=== PATIENT | female | born 1975 | race Caucasian/White ===

== ENCOUNTER 2019-06-08 05:41 | Day surgery (SDC) | payer MEDICARE, MEDICAID ==
[~2019-06-08] VITALS: Ht 162.6 cm; Wt 83.9 kg
[2019-06-08] MEDS ORDERED: LACTATED RINGERS 1,000 ML IV SCH (06:45)
[2019-06-08 07:10] LABS: BASOPHILS % 1.1 % (0.0-2.0); EOSINOPHILS % 4.3 % (0.0-5.0); HEMATOCRIT. 29.7 % (36.0-48.0); HEMOGLOBIN. 9.9 g/dL (12.0-16.0); MEAN CORPUSCULAR HEMOGLOBIN 27.2 pg (28.0-32.0); MEAN CORPUSCULAR VOLUME 81.9 fL (81.0-99.0); MEAN PLATELET VOLUME 8.2 fl (7.4-10.4); MONOCYTES % 6.2 % (2.0-8.0); NEUTROPHILS % 54.4 % (40.0-76.0); PLATELET 398 x1000/uL (130-400); RED BLOOD CELL COUNT 3.62 mill/uL (4.2-5.4); RED CELL DISTRIBUTION WIDTH 22.8 % (11.6-14.6)
[2019-06-08 07:11] LABS: CLARITY URINE CLOUDY (CLEAR); COLOR URINE YELLOW (YELLOW); KETONES URINE TRACE (NEGATIVE); LEUKOCYTE ESTERASE URINE NEGATIVE (NEGATIVE); NITRITE URINE NEGATIVE (NEGATIVE); OCCULT BLOOD URINE NEGATIVE (NEGATIVE); PROTEIN URINE 3+ (NEGATIVE); SPECIFIC GRAVITY URINE 1.025 (1.005-1.030); UROBILINOGEN URINE 0.2 E.U./dL (0.2-1.0)
[2019-06-08 07:14] LABS: UCG SCREEN NEGATIVE
[2019-06-08 07:15] LABS: CHLORIDE 109 mEq/L (98-107)
[2019-06-08 07:17] LABS: PARTIAL THROMBOPLASTIN TIME 26.1 sec (23.4-31.0)
[2019-06-08] MEDS ORDERED: FERR325T6 PO (07:19)
[2019-06-08] MEDS ORDERED: MULT-1116 PO (07:19)
[2019-06-08] MEDS ORDERED: MAGN500C4 PO (07:19)
[2019-06-08] MEDS ORDERED: INSU100I28 SQ (07:19)
[2019-06-08] MEDS ORDERED: SITA1TAB6 PO (07:19)
[2019-06-08] MEDS ORDERED: GEMF600T PO (07:19)
[2019-06-08] MEDS ORDERED: APIX5TAB PO (07:19)
[2019-06-08] MEDS ORDERED: MIDAZOLAM HCL 2 MG/2 ML VIAL ONE (07:35)
[2019-06-08] MEDS ORDERED: FENTANYL CITRATE/PF 50MCG/ML 2ML VIAL ONE ×2 (07:35→10:24)
[2019-06-08] MEDS ORDERED: PROPOFOL 200MG/20ML VIAL IV ONE (07:35)
[2019-06-08] MEDS ORDERED: LIDOCAINE HCL 1% 20ML VIAL (Pyxis) INJ ONE (07:36)
[2019-06-08] MEDS ORDERED: CEFAZOLIN SODIUM 1000MG/VIAL ONE (07:38)
[2019-06-08] MEDS ORDERED: SODIUM CHLORIDE 0.9% 10ML VIAL ONE (07:38)
[2019-06-08] MEDS ORDERED: NEOSTIGMINE METHYLSULFATE 1MG/ML 10 ML VIAL ONE (07:41)
[2019-06-08] MEDS ORDERED: ROCURONIUM BROMIDE 10MG/ML VIAL 5ML IV ONE (07:41)
[2019-06-08] MEDS ORDERED: GLYCOPYRROLATE 0.2 MG/ML 2ML VIAL ONE (07:41)
[2019-06-08 07:42] LABS: PLATELET ESTIMATE NORMAL
[2019-06-08] MEDS ORDERED: ONDANSETRON HCL 4MG/2ML INJ ONE ×2 (07:43→10:22)
[2019-06-08] MEDS ORDERED: METOCLOPRAMIDE HCL 10MG/2ML VIAL ONE (07:43)
[2019-06-08] MEDS ORDERED: EPHEDRINE SULFATE 50MG/ML VIAL ONE (08:10)
[2019-06-08] MEDS ORDERED: DIPHENHYDRAMINE 50MG/ML VIAL IV PRN (09:00)
[2019-06-08] MEDS ORDERED: HYDROMORPHONE HCL/PF 2MG/ML CPJ IV PRN (09:00)
[2019-06-08] MEDS ORDERED: DIPHENHYDRAMINE 50MG/ML VIAL IV NR (10:15)
[2019-06-08] MEDS ORDERED: FENTANYL CITRATE/PF 50MCG/ML 2ML VIAL IV PRN (10:15)
[2019-06-08] MEDS ORDERED: ONDANSETRON HCL 4MG/2ML INJ IV NR (10:15)
[2019-06-08] MEDS ORDERED: DIPHENHYDRAMINE 50MG/ML VIAL ONE (10:23)
[2019-06-08 11:08] VITALS: BP 155/83
== END 2019-06-08 12:10 | disposition home or self-care (01) ==
LOC: OR 05:41
PROVIDERS: ATTEND Obstetrics & Gynecology Obstetrics
DX: N93.9 Abnormal uterine and vaginal bleeding, unspecified (principal); N84.1 Polyp of cervix uteri; E11.9 Type 2 diabetes mellitus without complications; N92.1 Excessive and frequent menstruation with irregular cycle; Z98.890 Other specified postprocedural states; Z98.891 History of uterine scar from previous surgery; Z98.51 Tubal ligation status; Z79.899 Other long term (current) drug therapy; Z79.4 Long term (current) use of insulin
CPT/HCPCS: 36415; 58558; 80048; 81003; 81025; 82962; 85025; 85610; 85730; 88305; J0690; J1200; J2250; J2405; J2704; J2710; J2765; J3010; J3490

== ENCOUNTER → 2021-11-13 | Day surgery (SDC) | payer MEDICARE, MEDICAID ==
[~2021-11-13] VITALS: Ht 162.6 cm; Wt 85.3 kg
[~2021-11-13] MED LIST: APIX5TAB PO; ATOR80TA MT; CEFAZOLIN SODIUM 1000MG/VIAL ONE; DIPHENHYDRAMINE 50MG/ML VIAL ONE; DULA0.75 SQ; FENTANYL CITRATE/PF 50MCG/ML 2ML VIAL ONE; FERR325T6 PO; GEMF600T PO; INSU100I28 SQ; LIDOCAINE HCL/PF 1% 10 MG/ML 5ML VIAL ONE; MAGN500C4 PO; METO25TA3 PO; METOCLOPRAMIDE HCL 10MG/2ML VIAL ONE; MIDAZOLAM HCL 2 MG/2 ML VIAL ONE; MULT-1116 PO; ONDANSETRON HCL 4MG/2ML INJ ONE; PHENYLEPHRINE HCL 10 MG/ML 1ML (IV VIAL) IV ONE; PROPOFOL 200MG/20ML VIAL IV ONE; SACU1TAB7 MT; SITA1TAB6 PO; VASOPRESSIN 20 UNIT/ML 1ML ONE
[2021-11-13 06:45] LABS: HEMATOCRIT 26.8 % (36.0-48.0); MEAN CORPUSCULAR HEMOGLOBIN 27.4 pg (28.0-32.0); MEAN CORPUSCULAR VOLUME 82.2 fL (81.0-99.0); PLATELET 406 x1000/uL (130-400); RED BLOOD CELL COUNT 3.26 mill/uL (4.2-5.4); RED CELL DISTRIBUTION WIDTH 14.9 % (11.6-14.6)
[2021-11-13 07:02] LABS: CLARITY URINE CLEAR (CLEAR); COLOR URINE YELLOW (YELLOW); KETONES URINE TRACE (NEGATIVE); LEUKOCYTE ESTERASE URINE NEGATIVE (NEGATIVE); NITRITE URINE POSITIVE (NEGATIVE); OCCULT BLOOD URINE NEGATIVE (NEGATIVE); PROTEIN URINE 3+ (NEGATIVE); SPECIFIC GRAVITY URINE 1.022 (1.005-1.030); UCG SCREEN NEGATIVE
== END | disposition home or self-care (01) ==
LOC: OR 06:08
PROVIDERS: ATTEND Obstetrics & Gynecology Obstetrics
DX: N93.8 Other specified abnormal uterine and vaginal bleeding (principal); E78.00 Pure hypercholesterolemia, unspecified; E11.9 Type 2 diabetes mellitus without complications; K21.9 Gastro-esophageal reflux disease without esophagitis; I11.0 Hypertensive heart disease with heart failure; I50.9 Heart failure, unspecified; D50.9 Iron deficiency anemia, unspecified; Z79.4 Long term (current) use of insulin; Z79.899 Other long term (current) drug therapy; Z98.51 Tubal ligation status; Z98.890 Other specified postprocedural states; Z20.822 Contact with and (suspected) exposure to COVID-19
CPT/HCPCS: 36415; 58558; 81003; 81025; 82962; 85027; 86850; 86900; 86901; 87426; 88305; J0690; J1200; J2250; J2370; J2405; J2704; J2765; J3010; J3490